=== PATIENT | female | born 1965 | race Hispanic/Latino ===

== ENCOUNTER 2018-03-10 22:01 | Emergency (ER) | payer BC ==
[2018-03-10 22:31] VITALS: BP 135/79
[2018-03-10] MEDS ORDERED: ASPIRIN PO ONE (22:32)
[2018-03-10] MEDS ORDERED: DELTASONE ONE (22:36)
[2018-03-10] MEDS ORDERED: DUONEB *Not for PRN Use IH ONE ×2 (22:36→22:55)
[2018-03-10] MEDS ORDERED: DELTASONE PO ONE (22:56)
[2018-03-10 23:32] LABS: Basophils # (Auto) 0.1 K/mm3 (0.0-0.1); Basophils % (Auto) 0.6 % (0.0-1.8); Eosinophils # (Auto) 0.4 K/mm3 (0.0-0.4); Eosinophils % (Auto) 2.5 % (0.0-4.3); Hematocrit 46.1 % (30.3-42.9); Hemoglobin 15.1 gm/dl (10.1-14.3); Lymphocytes # (Auto) 4.4 K/mm3 (1.2-5.4); Lymphocytes % (Auto) 28.7 % (13.4-35.0); Mean Corpuscular HGB Conc 33 % (30-34); Mean Corpuscular Hemoglobin 32 pg (28-32); Mean Corpuscular Volume 98 fl (79-97); Monocytes # (Auto) 0.8 K/mm3 (0.0-0.8); Platelet Count 390 K/mm3 (140-440); Red Blood Count 4.69 M/mm3 (3.65-5.03); Red Cell Distribution Width 14.5 % (13.2-15.2)
[2018-03-10 23:49] LABS: BUN/Creatinine Ratio 9; Blood Urea Nitrogen 6 mg/dL (7-17); Calcium 9.3 mg/dL (8.4-10.2); Hemolysis Index 18
--- NOTE | 2018-03-10 23:55 | XRay Report ---
FINAL REPORT EXAM: XR CHEST ROUTINE 2V HISTORY: CIPRIANO TECHNIQUE: 2 views of the chest. PRIORS: None. FINDINGS: The cardiomediastinal silhouette appears normal. The lungs are clear. The bones and soft tissues are unremarkable. IMPRESSION: No evidence of acute cardiopulmonary disease
== END 2018-03-10 22:54 | disposition left against medical advice (07) ==
LOC: ED 22:01
DX: R07.89 Other chest pain (principal); R06.89 Other abnormalities of breathing; Z53.21 Procedure and treatment not carried out due to patient leaving prior to being seen by health care provider
CPT/HCPCS: 36415; 71046; 80048; 84484; 85025; 93005; 93010; J7512

== ENCOUNTER 2019-11-28 09:07 | Emergency (ER) | payer SELFPAY ==
--- NOTE | 2019-11-28 10:28 | XRay Report ---
RIGHT ANKLE 3 VIEWS INDICATION / CLINICAL INFORMATION: Pt felt ankle pop. Unable to bare weight COMPARISON: None available. FINDINGS: BONES / JOINT(S): No acute fracture or subluxation. No significant arthritis. SOFT TISSUES: No significant abnormality. ADDITIONAL FINDINGS: None. Signer Name: Remi Ji MD Signed: 11/28/2019 10:24 AM Workstation Name: [id number]
[2019-11-28] MEDS ORDERED: KETOROLAC 60 MG/2 ML INJ IM ONE (10:53)
--- NOTE | 2019-11-28 10:54 | Emergency Department Report ---
ED Lower Extremity HPI - General Chief Complaint: Extremity Injury, Lower Stated Complaint: (R) ANKLE POP Time Seen by Provider: 11/28/19 10:51 Source: patient Mode of arrival: Ambulatory Limitations: No Limitations - History of Present Illness Initial Comments: 54 yo female stood up this am and felt pop in R ankle. now co pain. Did not take any meds at home. no other injury. did not fall. ambulatory in [facility] - Related Data Previous Rx's Medication Instructions Recorded Last Taken Type Permethrin [Nix LIQUID] 60 ml TP ONCE #1 liquid 08/06/14 Unknown Rx Permethrin [Stop Lice SPRAY] 142 gm MC ONCE #1 spray 08/06/14 Unknown Rx Ibuprofen [Motrin] 800 mg PO Q8HR PRN #30 tablet 11/28/19 Unknown Rx Allergies Allergy/AdvReac Type Severity Reaction Status Date / Time Penicillins Allergy Unknown Verified 08/06/14 09:41 ED Review of Systems ROS: Stated complaint: (R) ANKLE POP Other details as noted in HPI Comment: All other systems reviewed and negative ED Past Medical Hx - Past Medical History Previous Medical History?: Yes Hx Asthma: Yes - Surgical History Past Surgical History?: Yes Hx Cholecystectomy: Yes Additional Surgical History: tubaligation - Family History Family history: no significant - Social History Smoking Status: Current Every Day Smoker Substance Use Type: Alcohol - Medications Home Medications: Home Medications Medication Instructions Recorded Confirmed Last Taken Type Permethrin [Nix LIQUID] 60 ml TP ONCE #1 liquid 08/06/14 Unknown Rx Permethrin [Stop Lice SPRAY] 142 gm MC ONCE #1 spray 08/06/14 Unknown Rx Ibuprofen [Motrin] 800 mg PO Q8HR PRN #30 tablet 11/28/19 Unknown Rx ED Physical Exam - General Limitations: No Limitations General appearance: alert, in no apparent distress - Head Head exam: Present: atraumatic, normocephalic - Eye Eye exam: Present: normal appearance - ENT ENT exam: Present: mucous membranes moist - Neck Neck exam: Present: normal inspection - Respiratory Respiratory exam: Present: normal lung sounds bilaterally. Absent: respiratory distress - Cardiovascular Cardiovascular Exam: Present: regular rate, normal rhythm. Absent: systolic murmur, diastolic murmur, rubs, gallop - GI/Abdominal GI/Abdominal exam: Present: soft, normal bowel sounds - Extremities Exam Extremities exam: Present: normal inspection - Back Exam Back exam: Present: normal inspection - Neurological Exam Neurological exam: Present: alert, oriented X3 - Psychiatric Psychiatric exam: Present: normal affect, normal mood - Skin Skin exam: Present: warm, dry, intact, normal color. Absent: rash ED Course Vital Signs 11/28/19 09:10 Temperature 98.5 F Pulse Rate 102 H Respiratory 18 Rate Blood Pressure 155/87 O2 Sat by Pulse 97 Oximetry ED Lower Extremity MDM - Radiology Data Radiology results: report reviewed, image reviewed - Medical Decision Making xray neg ambulatory neurovascular intact toradol for pain ice dc home with RICE and follow up Vital Signs 11/28/19 09:10 Temperature 98.5 F Pulse Rate 102 H Respiratory 18 Rate Blood Pressure 155/87 O2 Sat by Pulse 97 Oximetry - Differential Diagnosis ro fx Critical care attestation.: If time is entered above; I have spent that time in minutes in the direct care of this critically ill patient, excluding procedure time. ED Disposition Clinical Impression: Ankle pain Disposition: DC-01 TO HOME OR SELFCARE Is pt being admited?: No Does the pt Need Aspirin: No Condition: Stable Additional Instructions: ice rest elevate motrin for pain follow up with Dr Mora Referral below Prescriptions: Ibuprofen [Motrin] 800 mg PO Q8HR PRN #30 tablet PRN Reason: Pain, Moderate (4-6) Referrals: VIOLET MORA MD [Staff Physician] - 3-5 Days Time of Disposition: 10:52
[2019-11-28 11:36] VITALS: BP 150/81
== END 2019-11-28 11:29 | disposition home or self-care (01) ==
LOC: ED 09:07
DX: M25.571 Pain in right ankle and joints of right foot (principal); J45.909 Unspecified asthma, uncomplicated; F17.200 Nicotine dependence, unspecified, uncomplicated; F10.10 Alcohol abuse, uncomplicated; Z90.49 Acquired absence of other specified parts of digestive tract; Z98.51 Tubal ligation status; Z79.899 Other long term (current) drug therapy; Z88.0 Allergy status to penicillin
CPT/HCPCS: 73610; 96372; 99283; J1885

== ENCOUNTER 2020-02-06 17:04 | Emergency (ER) | payer OTHER ==
--- NOTE | 2020-02-06 17:42 | XRay Report ---
CHEST PA AND LATERAL VIEWS INDICATION: SOB, cough. COMPARISON: None. FINDINGS: Support devices: None. Heart: Within normal limits. Lungs/Pleura: There are diffuse increased reticulonodular opacities in both lungs. No focal consolida tion, effusion, or pneumothorax. IMPRESSION: 1. Diffuse peribronchovascular reticulonodular opacities may be inflammatory/infectious in etiology. Correlate clinically for lower airways disease. Signer Name: Mitch Reyna MD Signed: 02/06/2020 5:38 PM Workstation Name: [id number]
[2020-02-06] MEDS ORDERED: IPRATROPIUM/ALBUTEROL SULFATE 3 ML AMPUL.NEB IH ONE (19:46)
[2020-02-06] MEDS ORDERED: methylPREDNISolone Sod Succinate 125 MG/2 ML INJ IV ONE (19:47)
[2020-02-06 20:11] LABS: Basophils # (Auto) 0.1 K/mm3 (0.0-0.1); Basophils % (Auto) 0.5 % (0.0-1.8); Eosinophils # (Auto) 0.2 K/mm3 (0.0-0.4); Eosinophils % (Auto) 1.7 % (0.0-4.3); Hematocrit 42.2 % (30.3-42.9); Hemoglobin 14.1 gm/dl (10.1-14.3); Lymphocytes # (Auto) 3.8 K/mm3 (1.2-5.4); Mean Corpuscular HGB Conc 33 % (30-34); Mean Corpuscular Volume 97 fl (79-97); Monocytes # (Auto) 0.7 K/mm3 (0.0-0.8); Monocytes % (Auto) 5.9 % (0.0-7.3); Platelet Count 368 K/mm3 (140-440); Red Blood Count 4.35 M/mm3 (3.65-5.03); Red Cell Distribution Width 14.4 % (13.2-15.2)
[2020-02-06 20:32] LABS: Alanine Aminotransferase 22 units/L (7-56); BUN/Creatinine Ratio 7; Blood Urea Nitrogen 5 mg/dL (7-17); Calcium 9.4 mg/dL (8.4-10.2); Hemolysis Index 6
[2020-02-06] MEDS ORDERED: levoFLOXacin 750 MG TAB PO ONE (21:24)
[2020-02-06] MEDS: ACETAMINOPHEN 500 MG TAB PO ONE ×2 (21:35→22:00)
[2020-02-06] MEDS ORDERED: ACETAMINOPHEN 325 MG TAB PO ONE (21:50)
[2020-02-06] MEDS ORDERED: ACETAMINOPHEN 325 MG/10.15 ML ORAL LIQD UNIT DOSE ONE (21:51)
--- NOTE | 2020-02-06 22:27 | Emergency Department Report ---
- General Chief Complaint: Upper Respiratory Infection Stated Complaint: SOB/CHEST PAIN Source: patient Mode of arrival: Ambulatory Limitations: No Limitations - History of Present Illness Initial Comments: Patient is a 54-year-old white female with a history of asthma and heavy tobacco smoking abuse who presents to the ED with complaint of acute onset persistent nasal and sinus congestion, frontal sinus pressure, persistent dry cough with wheezing for the last 1 week. Patient states that in the last 2 days the symptoms have worsened. Patient denies dizziness, syncope, chest pain, abdominal pain, shortness of breath, fever, chills, nausea, vomiting, sore throat, headache, change in vision or palpitations. Patient states that no one else at home is had similar symptoms. Patient states that she ran out of her albuterol inhaler and nebulizer at home. MD Complaint: cough, rhinorrhea, nasal congestion, sinus pain -: Sudden, week(s) (1) Severity: moderate Severity scale (0 -10): 5 Quality: sharp, aching Consistency: intermittent Improves With: nothing Worsens With: nothing Associated Symptoms: denies other symptoms, headache, rhinorrhea, nasal congestion, cough, shortness of breath. denies: fever, chills, myalgias, sore throat, stiff neck, chest pain, abdominal pain, nausea, vomiting, diarrhea, dysuria, rash, right sweats, ear pain Treatments Prior to Arrival: none - Related Data Previous Rx's Medication Instructions Recorded Last Taken Type Permethrin [Nix LIQUID] 60 ml TP ONCE #1 liquid 08/06/14 Unknown Rx Permethrin [Stop Lice SPRAY] 142 gm MC ONCE #1 spray 08/06/14 Unknown Rx Ibuprofen [Motrin] 800 mg PO Q8HR PRN #30 tablet 11/28/19 Unknown Rx Albuterol Sulfate [Albuterol 0.63% 3 ml INHALATION Q6H PRN #75 ml 02/06/20 Unknown Rx NEBS] Albuterol Sulfate [Proventil Hfa] 1 - 2 puff IH Q6H PRN #1 inh 02/06/20 Unknown Rx Benzonatate [Tessalon Perles] 100 mg PO Q8HR #30 capsule 02/06/20 Unknown Rx Cetirizine HCl [Zyrtec 10mg tab] 10 mg PO DAILY #30 tablet 02/06/20 Unknown Rx Ibuprofen [Motrin] 600 mg PO Q8H PRN #24 tablet 02/06/20 Unknown Rx levoFLOXacin [Levaquin] 750 mg PO QDAY #7 tablet 02/06/20 Unknown Rx methylPREDNISolone [Medrol 4MG 4 mg PO DAILY #21 tab.ds.pk 02/06/20 Unknown Rx DOSEPAK (21 tabs)] Allergies Allergy/AdvReac Type Severity Reaction Status Date / Time Penicillins Allergy Unknown Verified 08/06/14 09:41 ED Review of Systems ROS: Stated complaint: SOB/CHEST PAIN Other details as noted in HPI Constitutional: denies: chills, fever Eyes: denies: eye pain, eye discharge, vision change ENT: congestion. denies: ear pain, throat pain Respiratory: cough, shortness of breath, wheezing Cardiovascular: denies: chest pain, palpitations Endocrine: no symptoms reported Gastrointestinal: denies: abdominal pain, nausea, vomiting, diarrhea Genitourinary: denies: urgency, dysuria, discharge Musculoskeletal: arthralgia, myalgia. denies: back pain, joint swelling Skin: denies: rash, lesions Neurological: denies: headache, weakness, paresthesias Psychiatric: denies: anxiety, depression Hematological/Lymphatic: denies: easy bleeding, easy bruising ED Past Medical Hx - Past Medical History Previous Medical History?: Yes Hx Asthma: Yes - Surgical History Past Surgical History?: Yes Hx Cholecystectomy: Yes Additional Surgical History: tubaligation - Social History Smoking Status: Current Every Day Smoker Substance Use Type: None - Medications Home Medications: Home Medications Medication Instructions Recorded Confirmed Last Taken Type Permethrin [Nix LIQUID] 60 ml TP ONCE #1 liquid 08/06/14 Unknown Rx Permethrin [Stop Lice SPRAY] 142 gm MC ONCE #1 spray 08/06/14 Unknown Rx Ibuprofen [Motrin] 800 mg PO Q8HR PRN #30 tablet 11/28/19 Unknown Rx Albuterol Sulfate [Albuterol 0.63% 3 ml INHALATION Q6H PRN #75 ml 02/06/20 Unknown Rx NEBS] Albuterol Sulfate [Proventil Hfa] 1 - 2 puff IH Q6H PRN #1 inh 02/06/20 Unknown Rx Benzonatate [Tessalon Perles] 100 mg PO Q8HR #30 capsule 02/06/20 Unknown Rx Cetirizine HCl [Zyrtec 10mg tab] 10 mg PO DAILY #30 tablet 02/06/20 Unknown Rx Ibuprofen [Motrin] 600 mg PO Q8H PRN #24 tablet 02/06/20 Unknown Rx levoFLOXacin [Levaquin] 750 mg PO QDAY #7 tablet 02/06/20 Unknown Rx methylPREDNISolone [Medrol 4MG 4 mg PO DAILY #21 tab.ds.pk 02/06/20 Unknown Rx DOSEPAK (21 tabs)] ED Physical Exam - General Limitations: No Limitations General appearance: alert, in no apparent distress - Head Head exam: Present: atraumatic, normocephalic, normal inspection - Eye Eye exam: Present: normal appearance, PERRL, EOMI Pupils: Present: normal accommodation - ENT ENT exam: Present: normal orophraynx, mucous membranes moist, other (Grossly congested nasal passages) - Neck Neck exam: Present: normal inspection, full ROM - Respiratory Respiratory exam: Present: wheezes (Mildly diffuse coarse wheezes throughout). Absent: respiratory distress, chest wall tenderness, accessory muscle use, prolonged expiratory - Cardiovascular Cardiovascular Exam: Present: regular rate, normal rhythm, normal heart sounds. Absent: systolic murmur, diastolic murmur, rubs, gallop - GI/Abdominal GI/Abdominal exam: Present: soft, normal bowel sounds. Absent: distended, tenderness, guarding, rebound, hyperactive bowel sounds, hypoactive bowel sounds, organomegaly, mass - Extremities Exam Extremities exam: Present: normal inspection, full ROM, normal capillary refill - Back Exam Back exam: Present: normal inspection, full ROM. Absent: tenderness, CVA tenderness (R), CVA tenderness (L), muscle spasm, paraspinal tenderness - Neurological Exam Neurological exam: Present: alert, oriented X3, CN II-XII intact, normal gait, reflexes normal - Psychiatric Psychiatric exam: Present: normal affect, normal mood - Skin Skin exam: Present: warm, dry, intact, normal color. Absent: rash ED Course Vital Signs 02/06/20 17:17 Temperature 98.2 F Pulse Rate 80 Respiratory 20 Rate Blood Pressure 144/93 [Left] O2 Sat by Pulse 98 Oximetry ED Medical Decision Making - Lab Data Result diagrams: 02/06/20 19:56 02/06/20 19:56 - Radiology Data Radiology results: report reviewed, image reviewed Findings [facility] [address] [place] [address] XRay Report Signed Patient: GERALDINE SMITH MR #: [id number] : 1965 Acct:[id number] Age/Sex: 54 / F ADM Date: 02/06/20 Loc: ED Attending Dr: Ordering Physician: ROSA RAPHAEL MD Date of Service: 02/06/20 Procedure(s): XR chest routine 2V Accession Number(s): [id number] cc: ED MD DONAVON Fluoro Time In Minutes: CHEST PA AND LATERAL VIEWS INDICATION: SOB, cough. COMPARISON: None. FINDINGS: Support devices: None. Heart: Within normal limits. Lungs/Pleura: There are diffuse increased reticulonodular opacities in both lungs. No focal consolidation, effusion, or pneumothorax. IMPRESSION: 1. Diffuse peribronchovascular reticulonodular opacities may be i nflammatory/infectious in etiology. Correlate clinically for lower airways disease. Signer Name: Mitch Reyna MD Signed: 02/06/2020 5:38 PM Workstation Name: [id number] Transcribed By: LOGAN Dictated By: Mitch Reyna MD Electronically Authenticated By: Mitch Reyna MD Signed Date/Time: 02/06/201737 DD/ 36 TD/TT: - Medical Decision Making This is a 54-year-old white female with a history of asthma and heavy tobacco smoking abuse who presents to the ED with complaint of acute onset persistent nasal and sinus congestion, frontal sinus pressure, persistent dry cough with wheezing for the last 1 week. Patient states that in the last 2 days the symptoms have worsened. In the ED, patient is alert and oriented x3 and is not in distress with normal vital signs and normal oxygen saturation in room air. Patient received treatment in the ED including Solu-Medrol, bronchodilator treatment, and pain medication. Lab test results were reviewed and showed acute leukocytosis of 12,300 and LDH of 226. The rest of the lab test results were unremarkable and nonactionable. Chest x-ray showed diffuse peribronchovascular reticulonodular opacities which may be inflammatory/infectious in etiology which in the current context of asthma exacerbation may be inflammatory or infectious. Patient was treated in the ED empirically with Levaquin 750 mg p.o. x1. On reevaluation, patient's wheezing resolved and patient was discharged home on medications and advised to self quarantine herself at home for 14 days as a precaution for Covid-19 viral pandemic. Patient was otherwise advised to return to the ED immediately if symptoms get worse. - Differential Diagnosis Pneumonia; URI; Bronchitis; Asthma; Critical care attestation.: If time is entered above; I have spent that time in minutes in the direct care of this critically ill patient, excluding procedure time. ED Disposition Clinical Impression: Acute upper respiratory infection Acute asthma exacerbation Qualifiers: Asthma severity: unspecified severity Asthma persistence: intermittent Qualif ied Code(s): J45.21 - Mild intermittent asthma with (acute) exacerbation Community acquired pneumonia Qualifiers: Laterality: right Lung location: unspecified part of lung Qualified Code(s): J18.9 - Pneumonia, unspecified organism Disposition: DC- TO HOME OR SELFCARE Is pt being admited?: No Does the pt Need Aspirin: No Condition: Stable Instructions: Community-acquired Pneumonia (ED), Asthma (ED), Upper Respiratory Infection (ED) Additional Instructions: Take all medications as advised with food, drink plenty of fluids and follow-up with your primary care physician in 7 to 10 days for reevaluation. Strictly maintain a 14-day quarantine for Covid-19 Viral pandemic. Return to the emergency department immediately if your symptoms get worse. Prescriptions: Albuterol Sulfate [Albuterol 0.63% NEBS] 3 ml INHALATION Q6H PRN #75 ml PRN Reason: Dyspnea levoFLOXacin [Levaquin] 750 mg PO QDAY #7 tablet methylPREDNISolone [Medrol 4MG DOSEPAK (21 tabs)] 4 mg PO DAILY #21 tab.ds.pk Ibuprofen [Motrin] 600 mg PO Q8H PRN #24 tablet PRN Reason: Pain Albuterol Sulfate [Proventil Hfa] 1 - 2 puff IH Q6H PRN #1 inh PRN Reason: Dyspnea Benzonatate [Tessalon Perles] 100 mg PO Q8HR #30 capsule Cetirizine HCl [Zyrtec 10mg tab] 10 mg PO DAILY #30 tablet Referrals: JHON HERRERA MD [Primary Care Provider] - 3-5 Days Forms: Work/School Release Form(ED) Time of Disposition: 22:29 Print Language: SLOVAK
[2020-02-06 22:48] VITALS: BP 139/82
== END 2020-02-06 22:45 | disposition home or self-care (01) ==
LOC: ED 17:04
DX: J45.21 Mild intermittent asthma with (acute) exacerbation (principal); J06.9 Acute upper respiratory infection, unspecified; J18.9 Pneumonia, unspecified organism; F17.200 Nicotine dependence, unspecified, uncomplicated; Z90.49 Acquired absence of other specified parts of digestive tract; Z79.899 Other long term (current) drug therapy; Z88.0 Allergy status to penicillin; Z98.51 Tubal ligation status
CPT/HCPCS: 36415; 71046; 80053; 82728; 83615; 83690; 84145; 85025; 86140; 94640; 96374; 99283; J2930

== ENCOUNTER 2020-10-31 22:03 | Emergency (ER) | payer SELFPAY ==
[2020-10-31 22:52] VITALS: BP 136/76
--- NOTE | 2020-11-01 01:01 | XRay Report ---
CHEST 2 VIEWS 2344 INDICATION / CLINICAL INFORMATION: MAIN COMPARISON: 02/06/2020 FINDINGS: SUPPORT DEVICES: None. HEART / MEDIASTINUM: No significant abnormality. LUNGS / PLEURA: Diffuse chronic appearing increased interstitial markings are again noted. Minimal le ft basilar atelectasis is seen. No definite superimposed acute infiltrates are noted. No pneumothorax . ADDITIONAL FINDINGS: No significant additional findings. IMPRESSION: No significant acute abnormality Signer Name: Chris Azar MD Signed: 11/01/2020 12:57 AM Workstation Name: [id number]
--- NOTE | 2020-11-01 01:19 | Emergency Department Report ---
- General Chief Complaint: Upper Respiratory Infection Stated Complaint: COUGH Time Seen by Provider: 11/01/20 01:13 Source: patient Mode of arrival: Ambulatory Limitations: No Limitations - History of Present Illness Initial Comments: 55-year-old female, history of asthma, presents to ED with cough and wheezing x1 month. Patient denies any fever or shortness of breath. Patient reports taking [id number]-aft-vglewdg meds at home for the cough and albuterol. Patient reports she is a smoker. Patient has not been tested for COVID-19 recently. States she was tested 2 months ago. MD Complaint: cough -: month(s) (1) Severity: moderate Consistency: intermittent Improves With: nothing Worsens With: activity Associated Symptoms: denies: fever, chills - Related Data Previous Rx's Medication Instructions Recorded Last Taken Type Permethrin [Nix LIQUID] 60 ml TP ONCE #1 liquid 08/06/14 Unknown Rx Permethrin [Stop Lice SPRAY] 142 gm MC ONCE #1 spray 08/06/14 Unknown Rx Ibuprofen [Motrin] 800 mg PO Q8HR PRN #30 tablet 11/28/19 Unknown Rx Albuterol Sulfate [Albuterol 0.63% 3 ml INHALATION Q6H PRN #75 ml 02/06/20 Unknown Rx NEBS] Albuterol Sulfate [Proventil Hfa] 1 - 2 puff IH Q6H PRN #1 inh 02/06/20 Unknown Rx Benzonatate [Tessalon Perles] 100 mg PO Q8HR #30 capsule 02/06/20 Unknown Rx Cetirizine HCl [Zyrtec 10mg tab] 10 mg PO DAILY #30 tablet 02/06/20 Unknown Rx Ibuprofen [Motrin] 600 mg PO Q8H PRN #24 tablet 02/06/20 Unknown Rx levoFLOXacin [Levaquin] 750 mg PO QDAY #7 tablet 02/06/20 Unknown Rx methylPREDNISolone [Medrol 4MG 4 mg PO DAILY #21 tab.ds.pk 02/06/20 Unknown Rx DOSEPAK (21 tabs)] Albuterol Sulfate [Proventil Hfa] 2 puff IH Q4HR PRN #1 hfa.aer.ad 11/01/20 Unknown Rx Benzonatate [Tessalon Perles] 100 mg PO Q8HR PRN #20 capsule 11/01/20 Unknown Rx predniSONE [Deltasone] 50 mg PO QDAY #5 tab 11/01/20 Unknown Rx Allergies Allergy/AdvReac Type Severity Reaction Status Date / Time Penicillins Allergy Unknown Verified 08/06/14 09:41 ED Review of Systems ROS: Stated complaint: COUGH Other details as noted in HPI Comment: All other systems reviewed and negative Constitutional: denies: chills, fever Respiratory: cough, wheezing. denies: shortness of breath ED Past Medical Hx - Past Medical History Previous Medical History?: Yes Hx GERD: Yes Hx Asthma: Yes - Surgical History Past Surgical History?: Yes Hx Cholecystectomy: Yes Additional Surgical History: tubaligation - Social History Smoking Status: Current Every Day Smoker Substance Use Type: None - Medications Home Medications: Home Medications Medication Instructions Recorded Confirmed Last Taken Type Permethrin [Nix LIQUID] 60 ml TP ONCE #1 liquid 08/06/14 Unknown Rx Permethrin [Stop Lice SPRAY] 142 gm MC ONCE #1 spray 08/06/14 Unknown Rx Ibuprofen [Motrin] 800 mg PO Q8HR PRN #30 tablet 11/28/19 Unknown Rx Albuterol Sulfate [Albuterol 0.63% 3 ml INHALATION Q6H PRN #75 ml 02/06/20 Unknown Rx NEBS] Albuterol Sulfate [Proventil Hfa] 1 - 2 puff IH Q6H PRN #1 inh 02/06/20 Unknown Rx Benzonatate [Tessalon Perles] 100 mg PO Q8HR #30 capsule 02/06/20 Unknown Rx Cetirizine HCl [Zyrtec 10mg tab] 10 mg PO DAILY #30 tablet 02/06/20 Unknown Rx Ibuprofen [Motrin] 600 mg PO Q8H PRN #24 tablet 02/06/20 Unknown Rx levoFLOXacin [Levaquin] 750 mg PO QDAY #7 tablet 02/06/20 Unknown Rx methylPREDNISolone [Medrol 4MG 4 mg PO DAILY #21 tab.ds.pk 02/06/20 Unknown Rx DOSEPAK (21 tabs)] Albuterol Sulfate [Proventil Hfa] 2 puff IH Q4HR PRN #1 hfa.aer.ad 11/01/20 Unknown Rx Benzonatate [Tessalon Perles] 100 mg PO Q8HR PRN #20 capsule 11/01/20 Unknown Rx predniSONE [Deltasone] 50 mg PO QDAY #5 tab 11/01/20 Unknown Rx ED Physical Exam - General Limitations: No Limitations General appearance: alert, in no apparent distress - Head Head exam: Present: atraumatic, normocephalic - Eye Eye exam: Present: normal appearance, EOMI - ENT ENT exam: Present: mucous membranes moist - Neck Neck exam: Present: normal inspection - Respiratory Respiratory exam: Present: normal lung sounds bilaterally, wheezes (scant). Absent: respiratory distress - Cardiovascular Cardiovascular Exam: Present: regular rate, normal rhythm - GI/Abdominal GI/Abdominal exam: Absent: distended - Extremities Exam Extremities exam: Present: normal inspection - Neurological Exam Neurological exam: Present: alert, oriented X3 - Psychiatric Psychiatric exam: Present: normal affect, normal mood - Skin Skin exam: Present: warm, dry, intact, normal color. Absent: rash ED Course Vital Signs 10/31/20 22:51 Temperature 98.6 F Pulse Rate 90 Respiratory 18 Rate Blood Pressure 136/76 [Left] O2 Sat by Pulse 96 Oximetry ED Medical Decision Making - Radiology Data Radiology results: report reviewed, image reviewed - Medical Decision Making Patient in no respiratory distress. O2 sats normal. Chest x-ray clear. Recommend outpatient Covid testing. Prescriptions given. Outpatient follow-up advised, return precautions given. - Differential Diagnosis Pneumonia, asthma, viral illness Critical care attestation.: If time is entered above; I have spent that time in minutes in the direct care of this critically ill patient, excluding procedure time. ED Disposition Clinical Impression: Cough Disposition: DC-01 TO HOME OR SELFCARE Is pt being admited?: No Condition: Stable Instructions: Cough, Adult, [id number] Prescriptions: predniSONE [Deltasone] 50 mg PO QDAY #5 tab Albuterol Sulfate [Proventil Hfa] 2 puff IH Q4HR PRN #1 hfa.aer.ad PRN Reason: Wheezing Benzonatate [Tessalon Perles] 100 mg PO Q8HR PRN #20 capsule PRN Reason: Cough Referrals: PRIMARY CARE, [Primary Care Provider] - 3-5 Days [facility] [Provider Group] - 3-5 Days Time of Disposition: 01:21
== END 2020-11-01 02:40 | disposition home or self-care (01) ==
LOC: ED 22:03
DX: R05 Cough (principal); K21.9 Gastro-esophageal reflux disease without esophagitis; J45.909 Unspecified asthma, uncomplicated; F17.200 Nicotine dependence, unspecified, uncomplicated; Z98.51 Tubal ligation status; Z79.899 Other long term (current) drug therapy; Z88.0 Allergy status to penicillin
CPT/HCPCS: 71046; 99283

== ENCOUNTER 2021-02-14 16:39 | Emergency (ER) | payer SELFPAY ==
--- NOTE | 2021-02-14 17:46 | Emergency Department Report ---
ED Extremity Problem HPI - General Stated complaint: R HAND INJURY Time Seen by Provider: 02/14/21 17:41 - History of Present Illness Initial comments: There is a pleasant 55-year-old female presents to the emergency department with a chief complaint of right wrist pain. She reports she was trying to take her pants off last night and her foot got caught and she landed forward on her flexed wrist. She reports pain to the wrist now with any movement. She reports the pain is a 6 out of 10. She denies any other injuries. Denies hitting head or losing consciousness. She denies any associated fever, chills, night sweats, headache, dizziness, blurry vision, nausea, vomiting, diarrhea, chest pain, shortness of breath, weakness or any other associated symptoms. - Related Data Previous Rx's Medication Instructions Recorded Last Taken Type Permethrin [Nix LIQUID] 60 ml TP ONCE #1 liquid 08/06/14 Unknown Rx Permethrin [Stop Lice SPRAY] 142 gm MC ONCE #1 spray 08/06/14 Unknown Rx Ibuprofen [Motrin] 800 mg PO Q8HR PRN #30 tablet 11/28/19 Unknown Rx Albuterol Sulfate [Albuterol 0.63% 3 ml INHALATION Q6H PRN #75 ml 02/06/20 Unknown Rx NEBS] Albuterol Sulfate [Proventil Hfa] 1 - 2 puff IH Q6H PRN #1 inh 02/06/20 Unknown Rx Benzonatate [Tessalon Perles] 100 mg PO Q8HR #30 capsule 02/06/20 Unknown Rx Cetirizine HCl [Zyrtec 10mg tab] 10 mg PO DAILY #30 tablet 02/06/20 Unknown Rx Ibuprofen [Motrin] 600 mg PO Q8H PRN #24 tablet 02/06/20 Unknown Rx levoFLOXacin [Levaquin] 750 mg PO QDAY #7 tablet 02/06/20 Unknown Rx methylPREDNISolone [Medrol 4MG 4 mg PO DAILY #21 tab.ds.pk 02/06/20 Unknown Rx DOSEPAK (21 tabs)] Albuterol Sulfate [Proventil Hfa] 2 puff IH Q4HR PRN #1 hfa.aer.ad 11/01/20 Unknown Rx Benzonatate [Tessalon Perles] 100 mg PO Q8HR PRN #20 capsule 11/01/20 Unknown Rx predniSONE [Deltasone] 50 mg PO QDAY #5 tab 11/01/20 Unknown Rx Naproxen [EC-Naprosyn] 500 mg PO BID #20 tablet. 02/14/21 Unknown Rx Allergies Allergy/AdvReac Type Severity Reaction Status Date / Time Penicillins Allergy Unknown Verified 08/06/14 09:41 ED Review of Systems ROS: Stated complaint: R HAND INJURY Other details as noted in HPI Comment: All other systems reviewed and negative Constitutional: denies: chills, fever Eyes: denies: eye pain, eye discharge, vision change ENT: denies: ear pain, throat pain Respiratory: denies: cough, shortness of breath, wheezing Cardiovascular: denies: chest pain, palpitations Endocrine: no symptoms reported Gastrointestinal: denies: abdominal pain, nausea, diarrhea Genitourinary: denies: urgency, dysuria, discharge Musculoskeletal: as per HPI, arthralgia. denies: back pain, joint swelling Skin: denies: rash, lesions Neurological: denies: headache, weakness, paresthesias Psychiatric: denies: anxiety, depression Hematological/Lymphatic: denies: easy bleeding, easy bruising ED Past Medical Hx - Past Medical History Hx GERD: Yes Hx Asthma: Yes - Surgical History Hx Cholecystectomy: Yes Additional Surgical History: tubaligation - Social History Smoking Status: Current Every Day Smoker Substance Use Type: None - Medications Home Medications: Home Medications Medication Instructions Recorded Confirmed Last Taken Type Permethrin [Nix LIQUID] 60 ml TP ONCE #1 liquid 08/06/14 Unknown Rx Permethrin [Stop Lice SPRAY] 142 gm MC ONCE #1 spray 08/06/14 Unknown Rx Ibuprofen [Motrin] 800 mg PO Q8HR PRN #30 tablet 11/28/19 Unknown Rx Albuterol Sulfate [Albuterol 0.63% 3 ml INHALATION Q6H PRN #75 ml 02/06/20 Unknown Rx NEBS] Albuterol Sulfate [Proventil Hfa] 1 - 2 puff IH Q6H PRN #1 inh 02/06/20 Unknown Rx Benzonatate [Tessalon Perles] 100 mg PO Q8HR #30 capsule 02/06/20 Unknown Rx Cetirizine HCl [Zyrtec 10mg tab] 10 mg PO DAILY #30 tablet 02/06/20 Unknown Rx Ibuprofen [Motrin] 600 mg PO Q8H PRN #24 tablet 02/06/20 Unknown Rx levoFLOXacin [Levaquin] 750 mg PO QDAY #7 tablet 02/06/20 Unknown Rx methylPREDNISolone [Medrol 4MG 4 mg PO DAILY #21 tab.ds.pk 02/06/20 Unknown Rx DOSEPAK (21 tabs)] Albuterol Sulfate [Proventil Hfa] 2 puff IH Q4HR PRN #1 hfa.aer.ad 11/01/20 Unknown Rx Benzonatate [Tessalon Perles] 100 mg PO Q8HR PRN #20 capsule 11/01/20 Unknown Rx predniSONE [Deltasone] 50 mg PO QDAY #5 tab 11/01/20 Unknown Rx Naproxen [EC-Naprosyn] 500 mg PO BID #20 tablet. 02/14/21 Unknown Rx ED Physical Exam - General General appearance: alert, in no apparent distress - Head Head exam: Present: atraumatic, normocephalic - Eye Eye exam: Present: normal appearance, PERRL, EOMI - ENT ENT exam: Present: normal exam, normal orophraynx, mucous membranes moist - Neck Neck exam: Present: normal inspection, full ROM. Absent: tenderness, meni ngismus - Respiratory Respiratory exam: Present: normal lung sounds bilaterally. Absent: respiratory distress, wheezes, rales, rhonchi, stridor - Cardiovascular Cardiovascular Exam: Present: regular rate, normal rhythm, normal heart sounds. Absent: systolic murmur, diastolic murmur, rubs, gallop - GI/Abdominal GI/Abdominal exam: Present: soft, normal bowel sounds. Absent: distended, tenderness, guarding, rebound, rigid - Extremities Exam Extremities exam: Present: normal inspection, full ROM, tenderness (Tenderness palpation to the mid wrist. No deformity. Normal distal sensation cap refill. Normal radial pulses.) - Back Exam Back exam: Present: normal inspection, full ROM. Absent: tenderness, CVA tenderness (R), CVA tenderness (L) - Neurological Exam Neurological exam: Present: alert, oriented X3, normal gait - Psychiatric Psychiatric exam: Present: normal affect, normal mood - Skin Skin exam: Present: warm, dry, intact, normal color. Absent: rash ED Course Vital Signs 02/14/21 17:46 Temperature 98.7 F Pulse Rate 87 Respiratory 20 Rate Blood Pressure 135/87 [Right] O2 Sat by Pulse 96 Oximetry ED Medical Decision Making - Radiology Data Radiology results: report reviewed atient: GERALDINE SMITH MR #: [id number] : 1965 Acct:[id number] Age/Sex: 55 / F ADM Date: 02/14/21 Loc: ED Attending Dr: Ordering Physician: PAM REGAN Date of Service: 02/14/21 Procedure(s): XR wrist 3+V RT Accession Number(s): [id number] cc: PAM REGAN Fluoro Time In Minutes: RIGHT WRIST 3 VIEWS INDICATION / CLINICAL INFORMATION: Right wrist pain after fall COMPARISON: None available. FINDINGS: BONES and JOINT(S): No acute fracture or subluxation. No significant arthritis. SOFT TISSUES: No significant abnormality. ADDITIONAL FINDINGS: None. IMPRESSION: 1. No acute findings. Signer Name: Billy Ortiz MD Signed: 02/14/2021 6:03 PM Workstation Name: [id number] Transcribed By: [place] Dictated By: Billy Ortiz MD Electronically Authenticated By: Billy Ortiz MD Signed Date/Time: 02/14/21 1803 - Medical Decision Making Patient nontoxic in no acute distress. Vital signs stable. X-ray negative for any acute findings. Patient was educated about rest, compression, elevation and ice and outpatient follow-up with orthopedics as needed. Anti-inflammatories. She verbalized understanding the diagnosis, treatment and follow-up instructions and all of her questions were answered. - Differential Diagnosis Strain, sprain, fracture Critical care attestation.: If time is entered above; I have spent that time in minutes in the direct care of this critically ill patient, excluding procedure time. ED Disposition Clinical Impression: Right wrist sprain Qualifiers: Encounter type: initial encounter Qualified Code(s): S63.501A - Unspecified sprain of right wrist, initial encounter Disposition: - TO HOME OR SELFCARE Is pt being admited?: No Condition: Stable Instructions: Wrist Sprain, Adult Prescriptions: Naproxen [EC-Naprosyn] 500 mg PO BID #20 tablet.dr Referrals: VIOLET BARRIOS MD [Staff Physician] - 3-5 Days Time of Disposition: 18:43
[2021-02-14 17:47] VITALS: BP 135/87
--- NOTE | 2021-02-14 18:07 | XRay Report ---
RIGHT WRIST 3 VIEWS INDICATION / CLINICAL INFORMATION: Right wrist pain after fall COMPARISON: None available. FINDINGS: BONES and JOINT(S): No acute fracture or subluxation. No significant arthritis. SOFT TISSUES: No significant abnormality. ADDITIONAL FINDINGS: None. IMPRESSION: 1. No acute findings. Signer Name: Billy Ortiz MD Signed: 02/14/2021 6:03 PM Workstation Name: [id number]
== END 2021-02-14 19:30 | disposition home or self-care (01) ==
LOC: ED 16:39
DX: S63.501A Unspecified sprain of right wrist, initial encounter (principal); K21.9 Gastro-esophageal reflux disease without esophagitis; J45.909 Unspecified asthma, uncomplicated; F17.200 Nicotine dependence, unspecified, uncomplicated; Z88.0 Allergy status to penicillin; Z79.899 Other long term (current) drug therapy; Z98.51 Tubal ligation status; X58.XXXA Exposure to other specified factors, initial encounter; Y93.89 Activity, other specified; Y92.89 Other specified places as the place of occurrence of the external cause; Y99.8 Other external cause status

== ENCOUNTER 2021-11-20 21:04 | Emergency (ER) | payer BC ==
[2021-11-20 21:59] VITALS: BP 129/78
[2021-11-21] MEDS ORDERED: ALBUTEROL 2.5 MG/3 ML NEBU IH ONE (00:30)
--- NOTE | 2021-11-21 01:18 | Emergency Department Report ---
ED Asthma HPI - General Chief Complaint: Adult Asthma Stated Complaint: Shortness of breath Time Seen by Provider: 11/21/21 00:30 Source: patient Mode of arrival: Ambulatory Limitations: No Limitations - History of Present Illness Initial Comments: 56-year-old female smoker presents emerged from complaining of wheezing coughing, nonproductive nature and occasional shortness of breath and chest discomfort reports no hemoptysis no hematemesis hematochezia, no nausea, no vomiting, no diarrhea feels she needs a breathing treatment as she ran out of her inhaler and not been able to get to the doctor to get a prescription for for a new MD Complaint: "asthma attack", wheezing -: Gradual Severity: mild Context: ran out of meds Associated Symptoms: none - Related Data Current Asthma Therapy: none Previous Rx's Medication Instructions Recorded Last Taken Type Permethrin [Nix LIQUID] 60 ml TP ONCE #1 liquid 08/06/14 Unknown Rx Permethrin [Stop Lice SPRAY] 142 gm MC ONCE #1 spray 08/06/14 Unknown Rx Ibuprofen [Motrin] 800 mg PO Q8HR PRN #30 tablet 11/28/19 Unknown Rx Albuterol Sulfate [Albuterol 0.63% 3 ml INHALATION Q6H PRN #75 ml 02/06/20 Un known Rx NEBS] Albuterol Sulfate [Proventil Hfa] 1 - 2 puff IH Q6H PRN #1 inh 02/06/20 Unknown Rx Benzonatate [Tessalon Perles] 100 mg PO Q8HR #30 capsule 02/06/20 Unknown Rx Cetirizine HCl [Zyrtec 10mg tab] 10 mg PO DAILY #30 tablet 02/06/20 Unknown Rx Ibuprofen [Motrin] 600 mg PO Q8H PRN #24 tablet 02/06/20 Unknown Rx levoFLOXacin [Levaquin] 750 mg PO QDAY #7 tablet 02/06/20 Unknown Rx methylPREDNISolone [Medrol 4MG 4 mg PO DAILY #21 tab.ds.pk 02/06/20 Unknown Rx DOSEPAK (21 tabs)] Albuterol Sulfate [Proventil Hfa] 2 puff IH Q4HR PRN #1 hfa.aer.ad 11/01/20 Unknown Rx Benzonatate [Tessalon Perles] 100 mg PO Q8HR PRN #20 capsule 11/01/20 Unknown Rx predniSONE [Deltasone] 50 mg PO QDAY #5 tab 11/01/20 Unknown Rx Naproxen [EC-Naprosyn] 500 mg PO BID #20 tablet. 02/14/21 Unknown Rx ALBUTEROL NEB's [Proventil 0.083% 2.5 mg IH TID PRN #30 neb 11/21/21 Unknown Rx NEBS] Albuterol Mdi (or & Nicu Only) 2 puff IH QID PRN #1 inhalation 11/21/21 Unknown Rx [ProAir HFA Inhaler] guaiFENesin/CODEINE [Robitussin AC] 5 ml PO Q6H PRN #120 ml 11/21/21 Unknown Rx Allergies Allergy/AdvReac Type Severity Reaction Status Date / Time Penicillins Allergy Unknown Verified 08/06/14 09:41 ED Review of Systems ROS: Stated complaint: Shortness of breath Other details as noted in HPI Comment: All other systems reviewed and negative ED Past Medical Hx - Past Medical History Previous Medical History?: Yes Hx GERD: Yes Hx Asthma: Yes - Surgical History Hx Cholecystectomy: Yes Additional Surgical History: tubaligation - Social History Smoking Status: Current Every Day Smoker - Medications Home Medications: Home Medications Medication Instructions Recorded Confirmed Last Taken Type Permethrin [Nix LIQUID] 60 ml TP ONCE #1 liquid 08/06/14 Unknown Rx Permethrin [Stop Lice SPRAY] 142 gm MC ONCE #1 spray 08/06/14 Unknown Rx Ibuprofen [Motrin] 800 mg PO Q8HR PRN #30 tablet 11/28/19 Unknown Rx Albuterol Sulfate [Albuterol 0.63% 3 ml INHALATION Q6H PRN #75 ml 02/06/20 Unknown Rx NEBS] Albuterol Sulfate [Proventil Hfa] 1 - 2 puff IH Q6H PRN #1 inh 02/06/20 Unknown Rx Benzonatate [Tessalon Perles] 100 mg PO Q8HR #30 capsule 02/06/20 Unknown Rx Cetirizine HCl [Zyrtec 10mg tab] 10 mg PO DAILY #30 tablet 02/06/20 Unknown Rx Ibuprofen [Motrin] 600 mg PO Q8H PRN #24 tablet 02/06/20 Unknown Rx levoFLOXacin [Levaquin] 750 mg PO QDAY #7 tablet 02/06/20 Unknown Rx methylPREDNISolone [Medrol 4MG 4 mg PO DAILY #21 tab.ds.pk 02/06/20 Unknown Rx DOSEPAK (21 tabs)] Albuterol Sulfate [Proventil Hfa] 2 puff IH Q4HR PRN #1 hfa.aer.ad 11/01/20 Unknown Rx Benzonatate [Tessalon Perles] 100 mg PO Q8HR PRN #20 capsule 11/01/20 Unknown Rx predniSONE [Deltasone] 50 mg PO QDAY #5 tab 11/01/20 Unknown Rx Naproxen [EC-Naprosyn] 500 mg PO BID #20 tablet.dr 02/14/21 Unknown Rx ALBUTEROL NEB's [Proventil 0.083% 2.5 mg IH TID PRN #30 neb 11/21/21 Unknown Rx NEBS] Albuterol Mdi (or & Nicu Only) 2 puff IH QID PRN #1 inhalation 11/21/21 Unknown Rx [ProAir HFA Inhaler] guaiFENesin/CODEINE [Robitussin AC] 5 ml PO Q6H PRN #120 ml 11/21/21 Unknown Rx ED Physical Exam - General Limitations: No Limitations General appearance: alert, in no apparent distress - Head Head exam: Present: atraumatic, normocephalic - Eye Eye exam: Present: normal appearance - ENT ENT exam: Present: mucous membranes moist - Neck Neck exam: Present: normal inspection - Respiratory Respiratory exam: Present: normal lung sounds bilaterally, wheezes. Absent: respiratory distress, rhonchi, accessory muscle use, decreased breath sounds - Cardiovascular Cardiovascular Exam: Present: regular rate, normal rhythm. Absent: systolic murmur, diastolic murmur, rubs, gallop - GI/Abdominal GI/Abdominal exam: Present: soft, normal bowel sounds. Absent: rebound, hypoactive bowel sounds, organomegaly, pulsatile mass - Extremities Exam Extremities exam: Present: normal inspection, normal capillary refill - Back Exam Back exam: Present: normal inspection. Absent: CVA tenderness (R), CVA tenderness (L) - Neurological Exam Neurological exam: Present: alert, oriented X3, CN II-XII intact - Psychiatric Psychiatric exam: Present: normal affect, normal mood - Skin Skin exam: Present: warm, dry, intact, normal color. Absent: rash, cyanosis ED Course Vital Signs 11/20/21 21:50 Temperature 98.2 F Pulse Rate 91 H Respiratory 18 Rate Blood Pressure 129/78 [Right] O2 Sat by Pulse 98 Oximetry ED Medical Decision Making - Medical Decision Making No altered mental status, saddle respirations, belly breathing or other signs of impending ventilatory failure. No intubations or recent admissions to the hospital for asthma. Unlikely pneumonia, CHF, COPD, GERD Workup Review include a chest x-ray which was normal she also received steroids and albuterol Therapies: Prednisone 50 mg PO. Albuterol nebulizer Reassessment: Patient improved with albuterol and ipratropium in less than 3 hours. Disposition: Discharge home with return precautions. Advised to follow up with primary care physician within next 24-48 hours. Aside from this acute exacerbation patient has been well controlled on baseline home regimen. Rx short steroid course, albuterol, Singulair, Flovent Critical care attestation.: If time is entered above; I have spent that time in minutes in the direct care of this critically ill patient, excluding procedure time. ED Disposition Clinical Impression: Asthma Disposition: HOME / SELF CARE / HOMELESS Is pt being admited?: No Does the pt Need Aspirin: No Condition: Stable Instructions: Asthma, Adult, Cough, Adult, [id number]-Kaia, Peak Flow Meter, Cough, Adult, Asthma Attack Prevention, Adult, How to Use a Dry Powder Inhaler, Asthma (ED) Prescriptions: Albuterol Mdi (or & Nicu Only) [ProAir HFA Inhaler] 2 puff IH QID PRN #1 inhalation PRN Reason: Shortness Of Breath ALBUTEROL NEB's [Proventil 0.083% NEBS] 2.5 mg IH TID PRN #30 neb PRN Reason: Wheezing guaiFENesin/CODEINE [Robitussin AC] 5 ml PO Q6H PRN #120 ml PRN Reason: Cough Referrals: KURTIS EDUARDO MD [Primary Care Provider] - 3-5 Days LUIS MIGUEL MEADE MD [Staff Physician] - 3-5 Days
== END 2021-11-21 02:10 | disposition home or self-care (01) ==
LOC: ED 21:04
DX: J45.909 Unspecified asthma, uncomplicated (principal); F17.200 Nicotine dependence, unspecified, uncomplicated; Z88.0 Allergy status to penicillin
CPT/HCPCS: 94640; 99282